=== PATIENT | female | born 1930 | race Caucasian/White ===

== ENCOUNTER 2020-04-15 16:39 | Observation (INO) | payer OTHER ==
[2020-04-15 17:21] LABS: Absolute Lymphocytes (CBC) 0.8 K/uL (0.7-4.9); Basophils % 0.7 % (0-1.3); Hematocrit 38.9 % (36.0-45.0); Lymphocytes % 12.4 % (15.3-44.8); MPV 9.1 fL (7.6-11.3); Protime INR 1.34; RBC Red Blood Cell Count 4.84 M/uL (3.86-4.86)
[2020-04-15] MEDS ORDERED: METOPROLOL TAR 25 MG TAB ONE (17:23)
[2020-04-15] MEDS ORDERED: FAMOTIDINE 20 MG/2 ML VIAL IV ONE (17:23)
[2020-04-15] MEDS ORDERED: NA CHLORIDE 0.9% 1,000 ML ONE (17:24)
[2020-04-15] MEDS ORDERED: FOLIC ACID 5 MG/ML VIAL ONE (17:24)
--- NOTE | 2020-04-15 17:38 | RAD REPORT ---
EXAM DESCRIPTION: RAD - Chest Single View - 04/15/2020 5:30 pm CLINICAL HISTORY: Cough;Dyspnea Chest pain. COMPARISON: No comparisons FINDINGS: Portable technique limits examination quality. 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 The heart is moderately enlarged in size. No displaced fr actures. IMPRESSION: No acute intrathoracic process suspected.
[2020-04-15 17:45] LABS: Albumin 3.6 g/dL (3.4-5.0); Bilirubin Direct 0.4 mg/dL (0-0.2); Bilirubin Total 1.2 mg/dL (0.2-1.0); Magnesium 1.6 mg/dL (1.8-2.4); Potassium 3.7 mmol/L (3.5-5.1); Protein, Total 7.2 g/dL (6.4-8.2); Thyroid Stimulating Hormone 2.02 uIU/mL (0.360-3.740); Troponin (Emerg Dept Use Only) 0.02 ng/mL (0.0-0.045)
--- NOTE | 2020-04-15 18:03 | ER ---
Nurse's Notes [facility] Name: Zahira Lynch Age: 89 yrs Sex: Female : 1930 Arrival Date: 04/15/2020 Time: 16:41 Bed 5 Private MD: Diagnosis: Atrial fibrillation and flutter-with RVR;Weakness-NEAR SYNCOPE;Unspecified kidney failure;Hypomagnesemia Presentation: 04/15 16:48 Chief complaint: EMS states: called out for high heart rate, on scene EMS reports HR of em 80's to 150's, hx of irregular HR, was given 5 mg metoprolol, reports epigastric pain, rate is in the 80's now, pt reports feeling better, had a similar episode 1 week ago. Coronavirus screen: Client denies travel out of the [place] in the last 14 days. Ebola Screen: Patient negative for fever greater than or equal to 101.5 degrees Fahrenheit, and additional compatible Ebola Virus Disease symptoms Patient denies exposure to infectious person. Patient denies travel to an Ebola-affected area in the 21 days before illness onset. No symptoms or risks identified at this time. Initial Sepsis Screen: Does the patient meet any 2 criteria? No. Patient's initial sepsis screen is negative. Does the patient have a suspected source of infection? No. Patient's initial sepsis screen is negative. Risk Assessment: Do you want to hurt yourself or someone else? Patient reports no desire to harm self or others. Onset of symptoms was April 15, 2020. 16:48 Method Of Arrival: EMS: [facility] em 16:48 Acuity: JIM 2 em Historical: - Allergies: 17:02 Cipro; em 17:02 CEPHALOSPORINS; em 17:02 Evista; em 17:02 Actonel; em - Home Meds: 17:02 Eliquis oral oral [Active]; Zofran Oral [Active]; metoprolol tartrate 25 mg Oral tab em [Active]; Novolog Sub-Q [Active]; atorvastatin oral oral [Active]; Amiodarone Oral [Active]; - PMHx: 17:02 Diabetes - IDDM; Atrial Fib; Hyperlipidemia; em - Immunization history:: Adult Immunizations up to date. - Social history:: Smoking status: Patient denies any tobacco usage or history of. - Family history:: not pertinent. Screenin:00 Abuse screen: Denies threats or abuse. Denies injuries from another. Nutritional lp1 screening: No deficits noted. Tuberculosis screening: No symptoms or risk factors identified. Fall Risk Total Holt Fall Scale indicates High Risk Score (45 or more points). Fall prevention measures have been instituted. Side Rails Up X 2 As available patient and family educated on Fall Prevention Program and Strategies. Assessment: 19:45 General: Appears in no apparent distress. Behavior is calm, cooperative, appropriate lp1 for age. Pain: Denies pain. Neuro: Level of Consciousness is awake, alert, obeys commands, Oriented to person, time, situation. Cardiovascular: Patient's skin is warm and dry. Rhythm is atrial fibrillation. Respiratory: Respiratory effort is even, unlabored, Respiratory pattern is regular, Breath sounds are clear bilaterally. GI: Abdomen is flat. : No signs and/or symptoms were reported regarding the genitourinary system. EENT: No signs and/or symptoms were reported regarding the EENT system. Derm: Skin is fragile, is thin, Skin is dry, Skin is normal. Musculoskeletal: No deficits noted. 21:15 Reassessment: Assisted patient to bedside commode; no further needs. lp1 22:00 Reassessment: Patient appears in no apparent distress at this time. Patient aware of lp1 pending admission. 23:00 Reassessment: Patient appears in no apparent distress at this time. Patient resting, lp1 eyes closed, respirations even unlabored. Vital Signs: 16:48 BP 120 / 86; Pulse 88; Resp 18; Temp 97.7; Pulse Ox 98% on R/A; em 19:45 BP 113 / 87; Pulse 85; Resp 20; Pulse Ox 100% on 2 lpm NC; lp1 20:30 BP 119 / 79; Pulse 78; Resp 14; Pulse Ox 99% on 2 lpm NC; lp1 22:00 BP 117 / 74; Pulse 72; Resp 14; Pulse Ox 99% on 2 lpm NC; lp1 23:00 BP 119 / 71; Pulse 60; Resp 14; Pulse Ox 100% on 2 lpm NC; lp1 NIH Stroke Scale Scores: 16:56 NIHSS Score: 0 leo ED Course: 16:41 Patient arrived in ED. em 16:42 Jose Garnica MD is Attending Physician. leo 16:48 Ananth Aceves, RN is Primary Nurse. em 16:51 Triage completed. em 16:56 EKG done, by ED staff, reviewed by Jose Garnica MD. dh3 17:02 Arm band placed on. em 17:05 Initial lab(s) drawn, by me, sent to lab. 3 17:30 XRAY Chest (1 view) In Process Unspecified. EDMS 17:58 Casey Baez MD is Hospitalizing Provider. leo 18:23 CT Head Brain wo Cont In Process Unspecified. EDMS 20:00 Patient has correct armband on for positive identification. Placed in gown. Bed in low lp1 position. Call light in reach. Side rails up X2. night monitor on. Pulse ox on. NIBP on. 21:41 No provider procedures requiring assistance completed. Patient admitted, IV remains in lp1 place. 04/16 04:12 Primary Nurse role handed off by Ananth Aceves, RN tt3 07:24 Ananth Aceves RN is Primary Nurse. em Administered Medications: 04/15 17:27 Drug: NS 0.9% 1000 ml Route: IV; Rate: 75 ml/hr; Site: left antecubital; em 17:28 Drug: Lopressor 25 mg Route: PO; em 17:28 Drug: Pepcid 20 mg Route: IVP; Site: left antecubital; em 17:28 Drug: foLIC Acid 1 mg Route: IVPB; Site: left antecubital; em 18:16 Drug: Zofran (Ondansetron) 4 mg Route: IVP; Site: left antecubital; em 18:57 Drug: Magnesium Sulfate 1 grams Route: IVPB; Infused Over: 1 hrs; Site: left em antecubital; 20:00 Follow up: IV Status: Completed infusion lp1 Outcome: 18:03 Decision to Hospitalize by Provider. leo 21:41 Condition: stable lp1 21:41 Instructed on the need for admit. 23:42 Admitted to ER Hold. Please see [facility] for further documentation. lp1 04/16 08:49 Patient left the ED. em NIH Stroke Scale - NIH Stroke Score Date: 04/15/2020 Time: 16:56 Total Score = 0 1a. Level of Consciousness (LOC) - 0(Alert) 1b. Level of Consciousness (LOC) (Year \T\ Age) - 0(Both) 1c. LOC Commands (Open \T\ Closes Eyes/Barrel Lathe Operator) - 0(Both) 2. Best Gaze (Lateral Gaze Paresis) - 0(Normal) 3. Visual Field Loss - 0(No visual loss) 4. Facial Palsy - 0(Normal) 5a. Left Arm: Motor (10-second hold) - 0(No drift) 5b. Right Arm: Motor (10-second hold) - 0(No drift) 6a. Left Leg: Motor (5-second hold - always test supine) - 0(No drift) 6b. Right Leg: Motor (5-second hold - always test supine) - 0(No drift) 7. Limb Ataxia (finger/nose \T\ heel/ivory - test with eyes open) - 0(Absent) 8. Sensory Loss (pinprick arms/legs/face) - 0(Normal) 9. Best Language: Aphasia (description/naming/reading) - 0(No aphasia) 10. Dysarthria (speech clarity - read or repeat words) - 0(Normal) 11. Extinction and Inattention (visual/tactile/auditory/spatial/personal) - 0(No abnormality) Initials: leo Signatures: Dispatcher [employer] Jose Rene MD MD cha Munoz, Edgar, RN Shirin Stock RN RN 1 Elizabeth Justice 3 Abhi Hicks 3
--- NOTE | 2020-04-15 18:04 | EDPHYS ---
Physician Documentation [facility] Name: Zahira Lynch Age: 89 yrs Sex: Female : 1930 Arrival Date: 04/15/2020 Time: 16:41 Bed 5 Private MD: ED Physician Jose Garnica HPI: 04/15 16:56 This 89 yrs old Female presents to ER via EMS with complaints of ams, fast hr leo and weakness. 16:56 The patient has shortness of breath with light activity. Onset: The symptoms/episode leo began/occurred just prior to arrival. Duration: The symptoms are continuous, but are steadily getting better. The patient's shortness of breath is aggravated by nothing, is alleviated by nothing. The patient presents with a history of irregular heart beat, heart racing. Context: The symptoms occur with light activity. Duration: The patient or guardian reports a single episode, that is still ongoing. Modifying factors: The symptoms are aggravated by nothing. The symptoms are alleviated by nothing. The patient presents with decreased mental status, dysphasia, trouble concentrating. Historical: - Allergies: 17:02 Cipro; em 17:02 CEPHALOSPORINS; em 17:02 Evista; em 17:02 Actonel; em - Home Meds: 17:02 Eliquis oral oral [Active]; Zofran Oral [Active]; metoprolol tartrate 25 mg Oral tab em [Active]; Novolog Sub-Q [Active]; atorvastatin oral oral [Active]; Amiodarone Oral [Active]; - PMHx: 17:02 Diabetes - IDDM; Atrial Fib; Hyperlipidemia; em - Immunization history:: Adult Immunizations up to date. - Social history:: Smoking status: Patient denies any tobacco usage or history of. - Family history:: not pertinent. ROS: 16:56 Constitutional: Negative for fever, chills, and weight loss, Eyes: Negative for injury, leo pain, redness, and discharge, ENT: Negative for injury, pain, and discharge, Neck: Negative for injury, pain, and swelling, Respiratory: Negative for shortness of breath, cough, wheezing, and pleuritic chest pain, Abdomen/GI: Negative for abdominal pain, nausea, vomiting, diarrhea, and constipation, Back: Negative for injury and pain, : Negative for injury, bleeding, discharge, and swelling, MS/Extremity: Negative for injury and deformity, Skin: Negative for injury, rash, and discoloration, Neuro: Negative for headache, weakness, numbness, tingling, and seizure, Psych: Negative for depression, anxiety, suicide ideation, homicidal ideation, and hallucinations, Allergy/Immunology: Negative for hives, rash, and allergies, Endocrine: Negative for neck swelling, polydipsia, polyuria, polyphagia, and marked weight changes, Hematologic/Lymphatic: Negative for swollen nodes, abnormal bleeding, and unusual bruising. 16:56 Cardiovascular: Positive for chest pain, palpitations. 16:56 Neuro: Positive for altered mental status, at baseline on arrival, nonfocal, nih 0. Exam: 16:56 Constitutional: This is a well developed, well nourished patient who is awake, alert, leo and in no acute distress. Head/Face: Normocephalic, atraumatic. Eyes: Pupils equal round and reactive to light, extra-ocular motions intact. Lids and lashes normal. Conjunctiva and sclera are non-icteric and not injected. Cornea within normal limits. Periorbital areas with no swelling, redness, or edema. ENT: Nares patent. No nasal discharge, no septal abnormalities noted. Tympanic membranes are normal and external auditory canals are clear. Oropharynx with no redness, swelling, or masses, exudates, or evidence of obstruction, uvula midline. Mucous membranes moist. Neck: Trachea midline, no thyromegaly or masses palpated, and no cervical lymphadenopathy. Supple, full range of motion without nuchal rigidity, or vertebral point tenderness. No Meningismus. Chest/axilla: Normal chest wall appearance and motion. Nontender with no deformity. No lesions are appreciated. Respiratory: Lungs have equal breath sounds bilaterally, clear to auscultation and percussion. No rales, rhonchi or wheezes noted. No increased work of breathing, no retractions or nasal flaring. Abdomen/GI: Soft, non-tender, with normal bowel sounds. No distension or tympany. No guarding or rebound. No evidence of tenderness throughout. Back: No spinal tenderness. No costovertebral tenderness. Full range of motion. Female : Normal external genitalia. Skin: Warm, dry with normal turgor. Normal color with no rashes, no lesions, and no evidence of cellulitis. MS/ Extremity: Pulses equal, no cyanosis. Neurovascular intact. Full, normal range of motion. Neuro: Awake and alert, GCS 15, oriented to person, place, time, and situation. Cranial nerves II-XII grossly intact. Motor strength 5/5 in all extremities. Sensory grossly intact. Cerebellar exam normal. Normal gait. Psych: Awake, alert, with orientation to person, place and time. Behavior, mood, and affect are within normal limits. 16:56 Cardiovascular: Rate: tachycardic, Rhythm: irregularly irregular, Pulses: Pulses are 4+ in bilateral radial, brachial, femoral, popliteal, posterior tibial and and dorsalis pedis arteries.. Heart sounds: normal, Edema: is not appreciated, JVD: is not appreciated. 18:04 ECG was reviewed by the Attending Physician. [facility] Vital Signs: 16:48 BP 120 / 86; Pulse 88; Resp 18; Temp 97.7; Pulse Ox 98% on R/A; em 19:45 BP 113 / 87; Pulse 85; Resp 20; Pulse Ox 100% on 2 lpm NC; lp1 20:30 BP 119 / 79; Pulse 78; Resp 14; Pulse Ox 99% on 2 lpm NC; lp1 22:00 BP 117 / 74; Pulse 72; Resp 14; Pulse Ox 99% on 2 lpm NC; lp1 23:00 BP 119 / 71; Pulse 60; Resp 14; Pulse Ox 100% on 2 lpm NC; lp1 NIH Stroke Scale Scores: 16:56 NIHSS Score: 0 leo MDM: 16:42 Patient medically screened. [facility] 17:00 Differential diagnosis: Anemia CHF exacerbation, arrythmia, dehydration, Unstable leo Angina. Antibiotic administration: Not indicated. Differential Diagnosis: CVA, electrolyte abnormality, hypoglycemia, intracranial bleed, overdose, seizure, sepsis, TIA, UTI, volume depletion. The patient's Wells Deep Vein Thrombosis Score was calculated as follows: Total Score: 0-2 Pts- Low Risk. The patient's pulmonary embolism risk score was calculated as follows: Total Score: 0-2 points. This patient was found to be at low risk for a pulmonary embolism by using the Well's assessment criteria. Immunization status: Pneumococcal vaccine: Influenza vaccine: Data reviewed: vital signs, nurses notes, lab test result(s), EKG, radiologic studies, CT scan, plain films. 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 Test interpretation: by ED physician or midlevel provider: ECG, plain radiologic studies. 04/15 16:55 Order name: Basic Metabolic Panel; Complete Time: 17:56 [facility] 04/15 16:55 Order name: CBC with Diff; Complete Time: 17:56 [facility] 04/15 16:55 Order name: LFT's; Complete Time: 17:56 [facility] 04/15 16:55 Order name: Magnesium; Complete Time: 17:56 [facility] 04/15 16:55 Order name: NT PRO-BNP; Complete Time: 17:56 [facility] 04/15 16:55 Order name: PT-INR; Complete Time: 17:56 [facility] 04/15 16:55 Order name: Troponin (emerg Dept Use Only); Complete Time: 17:56 [facility] 04/15 16:55 Order name: TSH; Complete Time: 17:56 [facility] 04/15 22:07 Order name: COVID-19 lp1 04/15 22:19 Order name: CORONAVIRUS [facility] 04/15 23:01 Order name: SARS-COV-2 RT PCR [facility] 04/16 00:55 Order name: Glucose, Ancillary Testing [facility] 04/16 01:19 Order name: Troponin I [facility] 04/16 05:29 Order name: CBC with Automated Diff [facility] 04/15 16:55 Order name: XRAY Chest (1 view); Complete Time: 17:56 [facility] 04/15 16:55 Order name: EKG; Complete Time: 16:56 [facility] 04/15 16:55 Order name: Cardiac monitoring; Complete Time: 16:57 [facility] 04/15 16:55 Order name: CT Head Brain wo Cont; Complete Time: 19:05 [facility] 04/16 05:38 Order name: Basic Metabolic Panel [facility] 04/16 05:38 Order name: T4 Free [facility] 04/16 05:38 Order name: Magnesium [facility] 04/16 05:38 Order name: Thyroid Stimulating Hormone [facility] 04/16 07:56 Order name: Glucose, Ancillary Testing [facility] 04/16 08:12 Order name: Troponin I [facility] 04/15 16:55 Order name: EKG - Nurse/Tech; Complete Time: 16:57 [facility] 04/15 16:55 Order name: IV Saline Lock; Complete Time: 17:08 [facility] 04/15 16:55 Order name: Labs collected and sent; Complete Time: 17: [facility] 04/15 16:55 Order name: O2 Per Protocol; Complete Time: : [facility] 04/15 16:55 Order name: O2 Sat Monitoring; Complete Time: 17: [facility] EC:04 Rate is 86 beats/min. Rhythm is irregularly irregular. QRS [place] is Normal. CT interval leo is normal. QRS interval is normal. QT interval is normal. No Q waves. T waves are Normal. No ST changes noted. Clinical impression: Atrial Fibrillation and No evidence of ischemia. Interpreted by me. Reviewed by me. Administered Medications: : Drug: NS 0.9% 1000 ml Route: IV; Rate: 75 ml/hr; Site: left antecubital; em 17:28 Drug: Lopressor 25 mg Route: PO; em 17:28 Drug: Pepcid 20 mg Route: IVP; Site: left antecubital; em 17:28 Drug: foLIC Acid 1 mg Route: IVPB; Site: left antecubital; em 18:16 Drug: Zofran (Ondansetron) 4 mg Route: IVP; Site: left antecubital; em 18:57 Drug: Magnesium Sulfate 1 grams Route: IVPB; Infused Over: 1 hrs; Site: left em antecubital; 20:00 Follow up: IV Status: Completed infusion lp1 Disposition: 04/15/20 18:03 Hospitalization ordered by Casey Baez for Observation. Preliminary diagnosis are Atrial fibrillation and flutter - with RVR, Weakness - NEAR SYNCOPE, Unspecified kidney failure, Hypomagnesemia. - Bed requested for Telemetry/MedSurg (observation). - Status is Observation. em - Condition is Fair. - Problem is new. - Symptoms have improved. NIH Stroke Scale - NIH Stroke Score Date: 04/15/2020 Time: 16:56 Total Score = 0 1a. Level of Consciousness (LOC) - 0(Alert) 1b. Level of Consciousness (LOC) (Year \T\ Age) - 0(Both) 1c. LOC Commands (Open \T\ Closes Eyes/Pizza Delivery Driver) - 0(Both) 2. Best Gaze (Lateral Gaze Paresis) - 0(Normal) 3. Visual Field Loss - 0(No visual loss) 4. Facial Palsy - 0(Normal) 5a. Left Arm: Motor (10-second hold) - 0(No drift) 5b. Right Arm: Motor (10-second hold) - 0(No drift) 6a. Left Leg: Motor (5-second hold - always test supine) - 0(No drift) 6b. Right Leg: Motor (5-second hold - always test supine) - 0(No drift) 7. Limb Ataxia (finger/nose \T\ heel/ivory - test with eyes open) - 0(Absent) 8. Sensory Loss (pinprick arms/legs/face) - 0(Normal) 9. Best Language: Aphasia (description/naming/reading) - 0(No aphasia) 10. Dysarthria (speech clarity - read or repeat words) - 0(Normal) 11. Extinction and Inattention (visual/tactile/auditory/spatial/personal) - 0(No abnormality) Initials: [facility] Signatures: Dispatcher [employer] Jose Rene MD MD cha Munoz, Edgar, RN RN em Geoff Muñoz emKerry Hernandez RN RN Shirin Cook RN lp1 Corrections: (The following items were deleted from the chart) 22:15 18:03 Hospitalization Ordered by Casey Baez MD for Observation. Preliminary cg diagnosis is Atrial fibrillation and flutter - with RVR; Weakness - NEAR SYNCOPE; Unspecified kidney failure; Hypomagnesemia. Bed requested for Telemetry/MedSurg (observation). Status is Observation. Condition is Fair. Problem is new. Symptoms have improved. [facility] 04/16 08:24 12 22:15 04/15/2020 18:03 Hospitalization Ordered by Casey Baez MD for em1 Observation. Preliminary diagnosis is Atrial fibrillation and flutter - with RVR; Weakness - NEAR SYNCOPE; Unspecified kidney failure; Hypomagnesemia. Bed requested for [facility] ER HOLD. Status is Observation. Condition is Fair. Problem is new. Symptoms have improved. 04/16 08:49 08:24 04/15/2020 18:03 Hospitalization Ordered by Casey Baez MD for em Observation. Preliminary diagnosis is Atrial fibrillation and flutter - with RVR; Weakness - NEAR SYNCOPE; Unspecified kidney failure; Hypomagnesemia. Bed requested for Telemetry/MedSurg (observation). Status is Observation. Condition is Fair. Problem is new. Symptoms have improved. em1
[2020-04-15] MEDS ORDERED: MAGNESIUM SULFATE 1 gm IVPB 1 GM/100 ML BAG IV ONE (18:24)
[2020-04-15] MEDS ORDERED: ONDANSETRON 4 MG/2 ML VIAL ONE (18:26)
--- NOTE | 2020-04-15 18:31 | RAD REPORT ---
EXAM DESCRIPTION: CT - Head Brain Wo Cont - 04/15/2020 6:23 pm CLINICAL HISTORY: Confused;Mental status change Headache, drowsiness COMPARISON: No comparisons TECHNIQUE: All CT scans are performed using dose optimization technique as appropriate and may inclu de automated exposure control or mA/KV adjustment according to patient size. FINDINGS: No intracranial hemorrhage, hydrocephalus or extra-axial fluid collection.Mild generalized brain atrophy is seen.No areas of brain edema or evidence of midline shift. 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 The paranasal sinuses and mastoids are clear. The calvarium is intact. IMPRESSION: No acute intracranial abnormality.
--- NOTE | 2020-04-15 23:42 | P.HP ---
Certification for Inpatient Patient admitted to: Observation With expected LOS: <2 Midnights Patient will require the following post-hospital care: None Practitioner: I am a practitioner with admitting privileges, knowledge of patient current condition, hospital course, and medical plan of care. Services: Services provided to patient in accordance with Admission requirements found in Title 42 Section 412.3 of the Code of Federal Regulations <Raul Hughes - Last Filed: 04/15/20 23:37> Patient History Date of Service: 04/15/20 Reason for admission: Afib RVR, ADI History of Present Illness: 89-year-old female with history of atrial fibrillation on chronic anticoagulation therapy, hypertension, CVA presents emergency department for palpitations, confusion. Patient was noted to feel weak and short of breath then began having some trouble speaking. EMS was called, patient was initially tachycardic to the 150s. Patient was given metoprolol 5 mg IV x1 en route to the hospital, her rate greatly improved along with her mental status. Patient was evaluated in the emergency department, chest x-ray unremarkable, EKG shows atrial fibrillation but rate is not better controlled. Labs significant for elevated creatinine 1.9, GFR 25, BUN 36, no labs available for comparison. Suspect possible ADI. Hypomagnesemia to 1.6. Tsh within normal limits. ED provider wishes to admit patient under observation for further evaluation and management. When I saw the patient in the ER she was awake, alert, oriented x3. Patient lives with her sister and has good quality of life. Denies any chest pain or shortness of breath this time, states she is feeling much better. - Past Medical/Surgical History -: Atrial fibrillation on chronic anticoagulation therapy-Eliquis -: Hyperlipidemia -: CVA -: Pulmonary fibrosis -: Aortic valve replacement-bovine Psychosocial/ Personal History: Patient lives at home with her sister - Social History Smoking Status: Never smoker Alcohol use: No CD- Drugs: No Caffeine use: No Place of Residence: Home <ReillygeorgiaRaul - Last Filed: 04/15/20 23:37> Date of Service: 04/21/20 - Family History Family History: Reviewed- Non-Contributory <Casey Baez - Last Filed: 04/21/20 04:10> Allergies Cephalosporins Allergy (Verified 04/16/20 02:06) Anaphylaxis ciprofloxacin [From Cipro] Allergy (Verified 04/16/20 02:06) Anaphylaxis raloxifene [From Evista] Allergy (Verified 04/16/20 02:06) Anaphylaxis risedronate sodium [From Actonel] Allergy (Verified 04/16/20 02:06) Anaphylaxis Home Medications: Apixaban [Eliquis *] 2.5 mg PO BID 04/16/20 Atorvastatin Calcium [Lipitor*] 10 mg PO BEDTIME 04/16/20 Cholecalciferol (Vitamin D3) [Vitamin D3] 5,000 unit PO DAILY 04/16/20 Cyanocobalamin [Vitamin B-12*] 5,000 mcg PO DAILY 04/16/20 Digoxin [Lanoxin*] 0.125 mg PO DAILY 04/16/20 Fenofibrate [Tricor*] 145 mg PO DAILY 04/16/20 Folic Acid 1 mg PO DAILY 30 Days #30 tablet 04/16/20 Insulin Aspart [Novolog] 6 unit SQ TIDWM 04/16/20 Insulin Detemir [Levemir Flextouch] 22 unit SQ BIDWM 04/16/20 Metoprolol Tartrate [Lopressor*] 50 mg PO BID 04/16/20 Review of Systems Unremarkable <Raul Hughes - Last Filed: 04/15/20 23:37> Physical Examination - Physical Exam General: Alert, In no apparent distress HEENT: Atraumatic, PERRLA, Mucous membr. moist/pink, EOMI, Sclerae nonicteric Neck: Supple, 2+ carotid pulse no bruit, No LAD, Without JVD or thyroid abnormality Respiratory: Clear to auscultation bilaterally, Normal air movement Cardiovascular: Normal S1 S2, Irregular heart rate/rhythm (Atrial fibrillation, rate controlled) Gastrointestinal: Normal bowel sounds, No tenderness Musculoskeletal: No tenderness Integumentary: No rashes Neurological: Normal speech, Normal strength at 5/5 x4 extr, Normal tone, Normal affect - Studies Laboratory Data (last 24 hrs) 04/15/20 17:05: PT 15.7 H, INR 1.34 04/15/20 17:05: WBC 6.5, Hgb 12.4, Hct 38.9, Plt Count 134 L 04/15/20 17:05: Sodium 138, Potassium 3.7, BUN 36 H, Creatinine 1.90 H, Glucose 251 H, Magnesium 1.6 L, Total Bilirubin 1.2 H, AST 29, ALT 30, Alkaline Phosphatase 107 <Raul Hughes - Last Filed: 04/15/20 23:37> Assessment and Plan - Plan Assessment Atrial fibrillation on chronic anticoagulation therapy-with rapid ventricular response Suspected acute kidney injury Hypertension Hyperlipidemia Plan Atrial fibrillation on chronic anticoagulation therapy-with rapid ventricular response: Rate now better controlled, continue with patient is home dose metoprolol, decrease Eliquis to 2.5 mg p.o. b.i.d. due to patient's renal func tion and age. Cardiology consult in place. DVT prophylaxis with Eliquis. Monitor on telemetry. Full code. Suspected acute kidney injury: Will place nephrology consult, no labs available for comparison for baseline. Decrease Eliquis dose. Hypertension: Continue metoprolol Hyperlipidemia: Obtain and continue home medications. Discharge Plan: Home Plan to discharge in: 24 Hours - Advance Directives Does patient have a Living Will: No Does patient have a Durable POA for Healthcare: No - Code Status/Comfort Care Code Status Assessed: Yes (full code) Critical Care: No Time Spent Managing Pts Care (In Minutes): 55 <Raul Hughes - Last Filed: 04/15/20 23:37> - Plan Plan of care reviewed as noted by Raul Hughes, and I agree with the management plan as noted above. Afib with RVR, with h/o Afib. likely due to missing dose, restart home medications. Cardiology consulted <Casey Baez - Last Filed: 04/21/20 04:10>
[2020-04-16] MEDS: INSULIN -REGULAR HUMAN 50 UNIT/0.5 ML ML SQ SCH ×4 (00:01→16:09)
[2020-04-16] MEDS ORDERED: NA CHLORIDE 0.9% 1,000 ML IV SCH ×2 (00:01→12:00)
[2020-04-16] MEDS ORDERED: ONDANSETRON 4 MG/2 ML VIAL IV PRN (00:01)
[2020-04-16] MEDS ORDERED: ACETAMINOPHEN 500 MG TAB PO PRN (00:01)
[2020-04-16] MEDS ORDERED: MELATONIN 5 MG TABLET PO PRN (00:01)
[2020-04-16 03:59] VITALS: BMI 21.1
[2020-04-16 05:27] LABS: Absolute Lymphocytes (CBC) 1.2 K/uL (0.7-4.9); Basophils % 0.7 % (0-1.3); Hematocrit 32.8 % (36.0-45.0); Lymphocytes % 19.4 % (15.3-44.8); MPV 9.6 fL (7.6-11.3); RBC Red Blood Cell Count 4.12 M/uL (3.86-4.86)
[2020-04-16 05:38] LABS: Potassium 3.6 mmol/L (3.5-5.1); Thyroid Stimulating Hormone 1.18 uIU/mL (0.360-3.740)
[2020-04-16] MEDS ORDERED: METOPROLOL TAR 25 MG TAB PO SCH (06:00)
[2020-04-16] MEDS ORDERED: POTASSIUM 25 MEQ EFFERV TAB PO ONE (08:00)
[2020-04-16] MEDS ORDERED: INSULIN -REGULAR HUMAN 50 UNIT/0.5 ML ML ONE (08:54)
[2020-04-16] MEDS ORDERED: APIXABAN 2.5 MG TABLET PO SCH (09:00)
[2020-04-16 10:55] VITALS: O2SAT 95
--- NOTE | 2020-04-16 11:42 | P.CNS ---
Date of Consult: 04/16/20 Reason for Consult: ADI Chief Complaint: Afib RVR, ADI History of Present Illness: An 89-year-old female with history of CKD III, as per pt GFR in low 30s, atrial fibrillation on chronic anticoagulation therapy, hypertension, CVA S/P Bioprosthetic valve Pt presented for AMS in ER had Afib with RVR HR 150, her Cr was 1.9 , denied NSAID intake Review of Systems: Head and Neck: No red eye. No ear pain. GI: No nausea, no vomiting. : No polyuria, no dysuria, no hematuria. Vocational Rehabilitation Supervisor: Not applicable. Respiratory: No shortness of breath. Cardiovascular: No chest pain. Endocrine: No polydipsia. Skin: No rash. Neuro: Has neuropathy. Musculoskeletal: No back pain . 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 now AAOX3 DM cont insulin total time spent 50min Allergies Cephalosporins Allergy (Verified 04/16/20 02:06) Anaphylaxis ciprofloxacin [From Cipro] Allergy (Verified 04/16/20 02:06) Anaphylaxis raloxifene [From Evista] Allergy (Verified 04/16/20 02:06) Anaphylaxis risedronate sodium [From Actonel] Allergy (Verified 04/16/20 02:06) Anaphylaxis Home Medications: Amiodarone HCl [Cordarone Tab] 200 mg PO DAILY 04/16/20 Apixaban [Eliquis] 2.5 mg PO BID 04/16/20 Atorvastatin Calcium [Lipitor] 40 mg PO BEDTIME 04/16/20 Insulin Aspart [Novolog] See Protocol SQ ACHS 04/16/20 Metoprolol Tartrate [Lopressor] 25 mg PO DAILY 04/16/20 - Past Medical/Surgical History Diabetic: Yes -: Atrial fibrillation on chronic anticoagulation therapy-Eliquis -: Hyperlipidemia -: CVA -: Pulmonary fibrosis -: Aortic valve replacement-bovine Psychosocial/ Personal History: Patient lives at home with her sister - Family History Father Medical History: Cancer Notes: Prostate cancer Mother Medical History: Diabetes - Social History Alcohol use: No CD- Drugs: No Caffeine use: No Place of Residence: Home Physical Examination Temp Pulse Resp BP Pulse Ox 97.6 F 78 18 140/63 96 04/16/20 09:00 04/16/20 09:00 04/16/20 09:00 04/16/20 09:00 04/16/20 09:00 Laboratory Data (last 24 hrs) 04/15/20 17:05: PT 15.7 H, INR 1.34 04/15/20 17:05: WBC 6.5, Hgb 12.4, Hct 38.9, Plt Count 134 L 04/15/20 17:05: Sodium 138, Potassium 3.7, BUN 36 H, Creatinine 1.90 H, Glucose 251 H, Magnesium 1.6 L, Total Bilirubin 1.2 H, AST 29, ALT 30, Alkaline Phosphatase 107
--- NOTE | 2020-04-16 14:08 | CON ---
Date of Consultation: 04/16/2020 Reason For Consultation: AFib with RVR. History Of Present Illness: An 89-year-old female with history of chronic AFib, on anticoagulation, history of CVA, dyslipidemia, pulmonary fibrosis, status post TAVR about a year ago, presented to the emergency room because of palpitations and confusion. She was tachycardic with atrial fibrillation with rapid ventricular response. Received IV metoprolol, improved her heart rate. She was placed on metoprolol by mouth and her heart rate has been in the mid 80s. Feels better today and she is much more clear minded. Denies having any chest pain. She claimed that she had a coronary angiogram befo re her TAVR and she was told that she does not have blockages. Past Medical History: As outlined above in the HPI. Medications: Refer to reconciliation sheet for detailed list. Allergies: ALLERGY LISTS WERE REVIEWED. PLEASE REFER TO NURSE'S NOTES. Social History: Does not smoke or drink. Does not use any drugs. Review of Systems: All systems were reviewed and they were negative except what mentioned in the HPI. Physical Examination: Vital Signs: Temperature is 97.6, pulse 78, breathing 18, blood pressure is 140/63, saturating 96%. General: Pleasant elderly female, in no apparent distress. Head and Neck: Pupils are equal, reactive to light. Intact eye movements. No JVD. No cervical lym phadenopathy. Neck: Supple. Thyroid is not enlarged. Lungs: Decreased breathing sounds bilaterally. No rhonchi, wheezing, or crackles. Heart: Irregularly irregular. No extra sounds. Abdomen: Soft, nontender. Bowel sounds positive. No organomegaly. No masses or hernia. No rigidi ty or rebound. Extremities: No edema, clubbing, or cyanosis. Intact pulses. Skin: No rash noted. Neurologic: Alert, awake, oriented x3. No acute focal deficits appreciated. Investigations: Creatinine 1.78. Troponin initially was 0.17, then 0.11. Hemoglobin is 10.9. Assessment And Recommendations: 1.Chronic atrial fibrillation, rate is controlled now. Continue metoprolol with the room for an adj ustment if heart rate goes above 100. At the current dose, she seems to be controlled. Also continu e anticoagulation with low-dose Eliquis 2.5 mg twice a day for stroke prevention. 2.Borderline elevated troponin. As per her report, she does not have any coronary artery disease. However, I would recommend a nuclear stress test, which can be done as an outpatient if the patient i s clinically hemodynamically stable for discharge. This is likely a demand leak of troponin and unli halley to be a significant coronary artery disease. SR/MODL Voice ID: [id number] Report ID: [id number]
--- NOTE | 2020-04-16 15:24 | P.DS ---
Admission Date: 04/15/20 Discharge Date: 04/16/20 Disposition: ROUTINE DISCHARGE Discharge Condition: GOOD Reason for Admission: Afib RVR, ADI Consultations: Cardiology -Dr. Caceres Nephrology - Dr. Schroeder Procedures: CXR (04/15): no acute intrathoracic process suspected CT Head (04/15): Mild generalized brain atrophy is seen. No areas of brain edema or evidence of midline shift. Old left posterior frontal infarct suspected. No acute intracranial abnormality. Renal U/S (04/16): no hydronephrosis or suspicious renal mass. ~2.5cm exophytic mass lower pole right kidney is most likely an incidental cyst Problem List Atrial fibrillation on chronic anticoagulation therapy-with rapid ventricular response CKDIII IDDM2 Hypertension Hyperlipidemia h/o Aortic Valve Replacement Brief History of Present Illness: 89yo F, PMH: Afib on eliquis, HTN, prior CVA, presents to ED due to palpitations and temporary confusion / trouble speaking. She reported feeling weak, SOB, and began having trouble speaking for ~2 hours. EMS was eventually called and was noted to be tachycardic to 150s. She was given metoprolol IV 5mg x1 en route to hospital and had resolution of her symptoms. In the ED, EKG revealed Afib with RVR, unremarkable CXR, CT head without any acute findings, and elevated Cr: 1.9, GFR: 25. She was admitted for further evaluation / management. Hospital Course: She was restarted on her home medications and her rate was well-controlled throughout her short hospitalization. Her troponin increased to 0.17 and cardiology was consulted. They recommended continuation of her home medications and felt her troponin was secondary to demand ischemia in setting of Afib with RVR. She is to f/u with Cardiology for consideration for a stress test done as an outpatient Patient did report some difficulty speaking / finding the right words prior to admission, which resolved prior to arrival to ED. A CT head was negative for acute process. She did not have any focal neurologic deficits on exam. It was felt patient may have had a TIA. Patient felt well and wanted to be discharged home. An MRI was not obtained as it wouldn't change treatment at this time. She is to continue on her Eliquis. She was advised to take folic acid and f/u with neurology in the next few weeks. It was initially thought that the patient had an ADI on CKD with her creatinine in the ED of 1.9, GFR: 25. Nephrology was consulted. On further discussion with the patient, she reported her GFR is typically 30-33. She was treated with IVF and had mild improvement of her renal function to Cr: 1.78 GFR: 27. It was recommended she f/u with nephrology. Vital Signs/Physical Exam: Temp Pulse Resp BP Pulse Ox 97.9 F 68 18 137/60 97 04/16/20 12:00 04/16/20 12:00 04/16/20 12:00 04/16/20 12:00 04/16/20 12:00 General: Alert, In no apparent distress, Oriented x3 HEENT: Sclerae nonicteric Respiratory: Clear to auscultation bilaterally, Normal air movement Cardiovascular: No edema, Irregular heart rate/rhythm (irregularly irregular rhythm, HR: 60-70s) Gastrointestinal: Soft and benign, Non-distended, No tenderness Musculoskeletal: No tenderness Integumentary: No rashes Neurological: Normal speech, Normal strength at 5/5 x4 extr, Cranial nerves 3-12 intact, Normal affect Laboratory Data at Discharge: WBC 6.4 K/uL (4.3-10.9) 04/16/20 04:27 Hgb 10.9 g/dL (12.0-15.0) L 04/16/20 04:27 Hct 32.8 % (36.0-45.0) L D 04/16/20 04:27 Plt Count 109 K/uL (152-406) L 04/16/20 04:27 PT 15.7 SECONDS (9.5-12.5) H 04/15/20 17:05 INR 1.34 04/15/20 17:05 Sodium 138 mmol/L (136-145) 04/16/20 04:27 Potassium 3.6 mmol/L (3.5-5.1) 04/16/20 04:27 BUN 34 mg/dL (7-18) H 04/16/20 04:27 Creatinine 1.78 mg/dL (0.55-1.3) H 04/16/20 04:27 Glucose 310 mg/dL (74-106) H 04/16/20 04:27 Magnesium 2.0 mg/dL (1.8-2.4) 04/16/20 04:27 Total Bilirubin 1.2 mg/dL (0.2-1.0) H 04/15/20 17:05 AST 29 U/L (15-37) 04/15/20 17:05 ALT 30 U/L (12-78) 04/15/20 17:05 Alkaline Phosphatase 107 U/L (45-117) 04/15/20 17:05 Troponin I 0.11 ng/mL (0.0-0.045) H 04/16/20 07:45 Home Medications: Apixaban [Eliquis *] 2.5 mg PO BID 04/16/20 Atorvastatin Calcium [Lipitor*] 10 mg PO BEDTIME 04/16/20 Cholecalciferol (Vitamin D3) [Vitamin D3] 5,000 unit PO DAILY 04/16/20 Cyanocobalamin [Vitamin B-12*] 5,000 mcg PO DAILY 04/16/20 Digoxin [Lanoxin*] 0.125 mg PO DAILY 04/16/20 Fenofibrate [Tricor*] 145 mg PO DAILY 04/16/20 Folic Acid 1 mg PO DAILY 30 Days #30 tablet 04/16/20 Insulin Aspart [Novolog] 6 unit SQ TIDWM 04/16/20 Insulin Detemir [Levemir Flextouch] 22 unit SQ BIDWM 04/16/20 Metoprolol Tartrate [Lopressor*] 50 mg PO BID 04/16/20 New Medications: Folic Acid 1 mg PO DAILY 30 Days #30 tablet Patient Discharge Instructions: Your symptoms were likely due to rapid afib which improved with restarting home medicatons. You had a slight increase in your cardiac enzyme, troponin, which was likely due to the rapid afib as well. It is recommended you continue your home medications as prescribed and follow up with your [facility] in the next few weeks for a stress test. You can follow up with Dr. Caceres if you would like. Your renal function was ok, seemed to be at your baseline. You can follow up with nephrology (Dr. Schroeder). Your symptoms of difficulty speaking may have been due to a TIA (transient ischemic attack). Your CT of your brain was negative for any new findings. You should follow up with Dr. King (Neurology) in the next month. Call his office this week to schedule an appointment. Diet: ADA Activity: Ad nida Followup: Cristian Schroeder MD [ACTIVE - CAN ADMIT] - Kalpesh King MD [ASSOCIATE-ACTIVE - CAN ADMIT] - NONE,NONE [Primary Care Provider] - Shashi Caceres MD [ACTIVE - CAN ADMIT] - Time spent managing pt's care (in minutes): 35
[2020-04-16 18:23] VITALS: BP 114/65; TEMP 97.8
--- NOTE | 2020-04-16 19:38 | RAD REPORT ---
EXAM DESCRIPTION: US - Renal Ultrasound-Complete - 04/16/2020 6:48 pm CLINICAL HISTORY: ADI COMPARISON: None FINDINGS: The right kidney measures 10.0 x 4.8 x 4.9 cm. The left kidney measures 8.8 x 4.7 x 3.7 c m. Renal cortical thickness and echogenicity are normal. No hydronephrosis or suspicious renal mass. A 2.5 centimeter exophytic lower pole round mass right kidney has a few low-level internal echoes. Si mple or minimally complex cyst is most likely. No bladder wall thickening or mass. No intraluminal stone or mass. IMPRESSION: No hydronephrosis or suspicious renal mass. Approximately 2.5 centimeter exophytic mass lower pole right kidney is most likely an incidental cyst .
== END 2020-04-16 18:16 | disposition home or self-care (01) ==
LOC: ER 16:39 → ERHOLD 20:16 → 2ND 04-16 08:42
PROVIDERS: ADMIT Hospitalist; ATTEND Hospitalist
DX: I48.20 Chronic atrial fibrillation, unspecified (principal); Z20.828 Contact with and (suspected) exposure to other viral communicable diseases; Z79.01 Long term (current) use of anticoagulants; Z86.73 Personal history of transient ischemic attack (TIA), and cerebral infarction without residual deficits; E11.22 Type 2 diabetes mellitus with diabetic chronic kidney disease; N18.30 Chronic kidney disease, stage 3 unspecified; I12.9 Hypertensive chronic kidney disease with stage 1 through stage 4 chronic kidney disease, or unspecified chronic kidney disease; Z79.4 Long term (current) use of insulin; E78.5 Hyperlipidemia, unspecified; Z95.3 Presence of xenogenic heart valve; N17.9 Acute kidney failure, unspecified; J84.10 Pulmonary fibrosis, unspecified; R94.31 Abnormal electrocardiogram [ECG] [EKG]; R93.421 Abnormal radiologic findings on diagnostic imaging of right kidney
CPT/HCPCS: 96365; 93005; 85025 ×2; 80048 ×2; 36415; 83735 ×2; 85610; 82947 ×4; 80076; 84443 ×2; 84484 ×3; 84439; 83880; 70450; 71045; 76770; 96375; 99285; U0003; J3475; J7030 ×2; J2405